=== PATIENT | female | born 1995 | race Caucasian/White ===

== ENCOUNTER 2022-08-13 22:00 | Inpatient (IN) | payer OTHER ==
[~2022-08-13] VITALS: Ht 162.6 cm; Wt 73.0 kg
[2022-08-13] MEDS ORDERED: ESCI5TAB PO (22:15)
[2022-08-13] MEDS ORDERED: ONDANSETRON 4 MG/2 ML VIAL IV ONE (23:00)
[2022-08-13] MEDS ORDERED: DICYCLOMINE HCL LIQ 10 MG/5 ML UDC PO ONE (23:00)
[2022-08-13] MEDS ORDERED: HYDROMORPHONE 1 MG/1 ML DISP.SYRIN IV ONE (23:00)
[2022-08-13] MEDS ORDERED: ONDANSETRON 4 MG/2 ML VIAL ONE (23:10)
[2022-08-13] MEDS ORDERED: DICYCLOMINE HCL LIQ 10 MG/5 ML UDC ONE (23:10)
[2022-08-13] MEDS ORDERED: HYDROMORPHONE 1 MG/1 ML DISP.SYRIN ONE (23:11)
[2022-08-13 23:16] LABS: HEMATOCRIT 37.2 % (31.2-41.9); MEAN CORPUSCULAR HEMOGLOBIN 25.6 uug (24.7-32.8); PLATELET COUNT (AUTO) 223 K/uL (179-408)
[2022-08-13 23:33] LABS: CARBON DIOXIDE 27 mmol/L (21-32); CHLORIDE 103 mmol/L (98-107); CREATININE 0.6 mg/dL (0.6-1.3); GLUCOSE 84 mg/dL (74-106); UREA NITROGEN, BLOOD 9 mg/dL (7-18)
[2022-08-13 23:39] LABS: ALANINE AMINOTRANSFERASE 32 U/L (14-59); ALKALINE PHOSPHATASE 40 U/L (50-136); ASPARTATE AMINOTRANSFERASE 19 U/L (15-37); BILIRUBIN,DIRECT 0.1 mg/dL (0.0-0.2); BILIRUBIN,TOTAL 0.5 mg/dL (0.2-1.0); LIPASE 144 U/L (73-393); TOTAL PROTEIN, SERUM 7.3 g/dL (6.4-8.2)
[2022-08-14] MEDS ORDERED: IOHEXOL 300MG/ML 100 ML INFUS..BTL ONE
[2022-08-14] MEDS ORDERED: SWABABLE VALVE TRANSFER SET EA MC ONE
[2022-08-14] MEDS ORDERED: IV NORMAL SALINE 250 ML IV ONE
[2022-08-14] MEDS ORDERED: HYDROMORPHONE 1 MG/1 ML DISP.SYRIN ONE (01:54)
[2022-08-14] MEDS ORDERED: HYDROMORPHONE 1 MG/1 ML DISP.SYRIN IV ONE (02:00)
[2022-08-14 03:11] LABS: *BILIRUBIN,URIN NEGATIVE (NEGATIVE); *CLARITY,URINE CLEAR (CLEAR); *COLOR,URINE YELLOW (YELLOW); *KETONES,URINE NEGATIVE (NEGATIVE); *UROBILINOGEN,URINE 0.2 E.U./dl (NORMAL); LEUKOCYTE ESTERASE ,URINE NEGATIVE (NEGATIVE); NITRITE, URINE NEGATIVE (NEGATIVE); PH,URINE 5.5 (5.0-8.0); UGLUCOSE NEGATIVE (NEGATIVE)
[2022-08-14 03:12] LABS: *BLOOD, URINE NEGATIVE (NEGATIVE)
[2022-08-14] MEDS ORDERED: IV D5W-0.45% NS +20 KCL 1,000 ML IV ONE ×2 (04:15→04:24)
[2022-08-14 09:51] VITALS: BP 106/60
[2022-08-14] MEDS ORDERED: HYDROCODONE/APAP 10-325 MG TABLET PO PRN (10:15)
[2022-08-14] MEDS ORDERED: ACETAMINOPHEN 325 MG TABLET PO PRN (10:15)
[2022-08-14] MEDS ORDERED: MAGNESIUM HYDROXIDE 30 ML LIQUID UDC PO PRN (10:15)
[2022-08-14] MEDS ORDERED: ONDANSETRON 4 MG/2 ML VIAL IV PRN (10:15)
[2022-08-14] MEDS ORDERED: HYDROCODONE/APAP 5-325MG TABLET PO PRN (10:15)
[2022-08-14] MEDS ORDERED: MORPHINE SULFATE 2 MG/1 ML DISP.SYRIN IV PRN (10:15)
[2022-08-14] MEDS ORDERED: RIZA10TA98 PO (12:54)
[2022-08-14] MEDS ORDERED: FLUO60TA PO (12:54)
[2022-08-14 16:00] VITALS: BP 108/50
[2022-08-14 20:00] VITALS: BP 116/65
[2022-08-15 04:00] VITALS: BP 101/58
[2022-08-15 06:49] LABS: HEMATOCRIT 31.9 % (31.2-41.9); MEAN CORPUSCULAR HEMOGLOBIN 26.1 uug (24.7-32.8); MEAN CORPUSCULAR VOLUME 79.6 fL (75.5-95.3); PLATELET COUNT (AUTO) 167 K/uL (179-408)
[2022-08-15 06:55] LABS: CREATININE 0.6 mg/dL (0.6-1.3); PHOSPHOROUS 3.9 mg/dL (2.5-4.9); POTASSIUM 3.8 mmol/L (3.5-5.1)
[2022-08-15 07:01] LABS: THYROID STIMULATING HORMONE 1.761 mIU/mL (0.358-3.740)
[2022-08-15 11:01] VITALS: BP 100/64
[2022-08-16 15:06] LABS: *GC NAA Negative (Negative); *TRIC.VAG. NAA Negative (Negative)
== END 2022-08-15 13:25 | disposition home or self-care (01) | DRG 760 ==
LOC: ER 22:00 → TELE3 08-14 09:00 → MEDSURG3 08-14 10:09
DX: N83.292 Other ovarian cyst, left side (principal); K66.1 Hemoperitoneum; R18.8 Other ascites; K58.9 Irritable bowel syndrome, unspecified; G43.909 Migraine, unspecified, not intractable, without status migrainosus; K59.4 Anal spasm; F41.9 Anxiety disorder, unspecified; Z79.899 Other long term (current) drug therapy
CPT/HCPCS: 36415; 76856; 83690; 83735; 84100; 84443; 85025; 87210; 87491; A4663; G0378; J1170; J2270; J2405; Q9967